=== PATIENT | male | born 1955 | race Caucasian/White ===

== ENCOUNTER 2018-01-22 16:38 | Emergency (ER) | payer BC ==
[~2018-01-22] VITALS: Ht 172.7 cm; Wt 100.0 kg
[2018-01-22 16:48] VITALS: TEMP 98.6
[2018-01-22] MEDS ORDERED: NORVASC 10MG10 MG PO (17:03)
[2018-01-22] MEDS ORDERED: PRAVACHOL 40MG40 MG PO (17:03)
[2018-01-22] MEDS ORDERED: ASPIRIN 81M81 MG/TA2 PO (17:03)
[2018-01-22 17:05] LABS: BASO % 0.4 % (0.0-2.0); EOS # 0.1 (0.0-0.7); EOS % 0.5 % (0-4.0); GRAN # 8.7 (1.4-6.5); GRAN % 82.3 % (42.2-75.2); HEMATOCRIT 44.8 % (42.0-52.0); HEMOGLOBIN 15.1 g/dl (13.5-18.0); LYMPH # 1.1 (1.2-3.4); LYMPH % 10.4 % (20.0-51.0); MEAN CELL VOLUME 85 fl (80.0-100.0); MEAN CORPUSCULAR HEMOGLOBIN 29 pg (27.0-31.0); MEAN CORPUSCULAR HGB CONC 34 g/dl (33.0-37.0); MONO # 0.7 (0.1-0.6); MONO % 6.2 % (1.7-9.3); PLATELET COUNT 227 K/mm3 (130-400); REDCELL DISTRIBUTION WIDTH-CV 13.5 % (11.5-14.5)
[2018-01-22 17:14] LABS: ALBUMIN 4.2 gm/dL (3.5-5.0); BILIRUBIN,TOTAL 0.4 mg/dL (0.0-1.0); CALCIUM 9.2 mg/dL (8.4-10.2); CREATININE, serum 1.01 mg/dL (0.66-1.25); POTASSIUM 3.2 mmol/L (3.4-5.0); TOTAL PROTEIN 7.7 gm/dL (6.4-8.2)
[2018-01-22 17:15] LABS: PROTHROMBIN TIME 11.5 SECONDS (9.7-12.8)
[2018-01-22 17:17] LABS: PARTIAL THROMBOPLASTIN TIME 29.9 SECONDS (26.0-37.0)
[2018-01-22 17:29] LABS: TROPONIN-I 0.067 ng/mL (0.000-0.034)
[2018-01-22 18:25] VITALS: BP 146/92
[2018-01-22 18:30] VITALS: PULSE 86
== END 2018-01-22 18:44 | disposition short-term general hospital (02) ==
LOC: COL.ER 16:38
PROVIDERS: Emergency Medicine
DX: I21.19 ST elevation (STEMI) myocardial infarction involving other coronary artery of inferior wall (principal); I10 Essential (primary) hypertension; E78.5 Hyperlipidemia, unspecified
CPT/HCPCS: J0461; J1644; J2270; J2405; J3101; J3480; J7030